=== PATIENT | female | born 1990 | race Caucasian/White ===

== ENCOUNTER 2016-04-20 22:43 | Emergency (ER) | payer SELFPAY ==
[2016-04-20 22:52] VITALS: BP 134/81
[2016-04-20] MEDS ORDERED: Ketorolac 60 MG/2 ML SDV IM ONE (23:28)
--- NOTE | 2016-04-21 00:32 | EDM.PDOC ---
ED HPI LOWER BACK PAIN/INJURY - General Chief Complaint: Back Pain or Injury Stated Complaint: LOWER BACK PAIN Time Seen by Provider: 04/21/16 00:16 Source: Reports: Patient History Limitations: Reports: No limitations - History of Present Illness INITIAL COMMENTS - FREE TEXT/NARRATIVE: History of present illness: [25-year-old female presenting with left low back pain and chills. She's been using Tylenol at home. The pain became so severe she vomited times one. She denies any dysuria she's had no constipation or diarrhea no cough or cold symptoms. No history of angina as her heavy lifting. She's not had this before. She's been in good health] Review of systems: As per history of present illness and below otherwise all systems reviewed and negative. Past medical history: As per history of present illness and as reviewed below otherwise noncontributory. Surgical history: As per history of present illness and as reviewed below otherwise noncontributory. Social history: No reported history of drug or alcohol abuse. Family history: As per history of present illness and as reviewed below otherwise noncontributory. Physical exam: HEENT: Atraumatic, normocephalic, pupils reactive, negative for conjunctival pallor or scleral icterus, mucous membranes moist, throat clear, neck supple, nontender, trachea midline. Lungs: Clear to auscultation, breath sounds equal bilaterally, chest nontender. Heart: S1S2, regular, negative for clicks, rubs, or JVD. Abdomen: Soft, nondistended, nontender. Negative for masses or hepatosplenomegaly. Negative for costovertebral tenderness. Pelvis: Stable nontender. Genitourinary: Deferred. Rectal: Deferred. Back: On examination of her back her pain localizes to the left SI joint area no rashes are present no erythema or warmth Extremities: Atraumatic, negative for cords or calf pain. Neurovascular unremarkable. Neuro: Awake, alert, oriented. Cranial nerves II through XII unremarkable. Cerebellum unremarkable. Motor and sensory unremarkable throughout. Exam nonfocal. Diagnostics: [] Therapeutics: [She was given IM Toradol with moderate relief] Impression: [Lower back pain in the region of the SI joint] Plan: [Providing her with 12 [place] 5/325. She recalls having some trouble with his joints when she was and seeing a chiropractor so she may try chiropractic treatment. Following up with her primary care providers also of course an option] Definitive disposition and diagnosis as appropriate pending reevaluation and review of above. 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 ED EXAM,LOWER BACK PAIN/INJURY - Physical Exam Exam: See Below Course - Vital Signs Last Recorded V/S: Last Vital Signs Temp 37.6 C 04/20/16 22:50 Pulse 119 H 04/20/16 22:50 Resp BP 134/81 04/20/16 22:50 Pulse Ox 100 04/20/16 22:50 - Orders/Labs/Meds Labs: Laboratory Tests 04/20/16 04/20/16 Range/Units 23:11 23:11 Urine Color Yellow Urine Appearance Clear Urine pH 9.0 H (4.5-8.0) Ur Specific [place] 1.020 (1.008-1.030) Urine Protein Negative (NEGATIVE) mg/dL Urine Glucose (UA) Normal (NEGATIVE) mg/dL Urine Ketones 15 H (NEGATIVE) mg/dL Urine Occult Blood Negative (NEGATIVE) Urine Nitrite Negative (NEGATIVE) Urine Bilirubin Negative (NEGATIVE) Urine Urobilinogen Normal (NORMAL) mg/dL Ur Leukocyte Esterase Negative (NEGATIVE) Urine RBC 0-5 (0-5) Urine WBC 0-5 (0-5) Ur Epithelial Cells Moderate Amorphous Sediment Not seen Urine Bacteria Few Urine Mucus Not seen Urine HCG, Qual Negative Meds: Medications Discontinued Medications Generic Name Dose Route Start Last Admin Trade Name Adam PRN Reason Stop Dose Admin Ketorolac Tromethamine 30 mg 04/20/16 23:28 04/20/16 23:35 Toradol IM 04/20/16 23:29 30 mg ONETIME ONE Administration Departure - Departure Time of Disposition: 00:30 Disposition: Home, Self-Care 01 Condition: good Clinical Impression: Pain of left sacroiliac joint Forms: ED Department Discharge Additional Instructions: Your pain seems to localize to the left sacroiliac joint region. Once again you may consider residential care facility manager to see if they could help you with your pain or follow up with your primary care doctor. If you become more ill or develops high fevers associated with this pain then you should return to the emergency room for another evaluation.
== END 2016-04-21 00:42 | disposition home or self-care (01) ==
LOC: JP.ED 22:43
DX: M53.3 Sacrococcygeal disorders, not elsewhere classified (principal)
CPT/HCPCS: 81001; 81025; 96372; 99284; J1885; 99283

== ENCOUNTER 2016-11-07 23:46 | Emergency (ER) | payer MEDICAID ==
[2016-11-08 00:10] VITALS: BP 139/71
--- NOTE | 2016-11-08 00:29 | EDM.PDOC ---
ED HPI GENERAL MEDICAL PROBLEM - General Chief Complaint: Lower Extremity Injury/Pain Stated Complaint: DROPPED DOOR ON RIGHT FOOT Time Seen by Provider: 11/08/16 00:15 Source of Information: Reports: Patient, Family History Limitations: Reports: No Limitations - History of Present Illness INITIAL COMMENTS - FREE TEXT/NARRATIVE: 26-year-old female injured her right foot 5 hours ago when a heavy trapdoor fell onto her forefoot. No significant swelling but she was unable to sleep tonight because of the significant pain. She is able to bear some weight with limping. No other injury. Onset: Sudden Duration: Hour(s): (5 hours ago) Location: Reports: Lower Extremity, Right Severity: Moderate Associated Symptoms: Reports: No Other Symptoms Right Feet Pain Score (Numeric/FACES): 9 - Related Data Allergies Allergy/AdvReac Type Severity Reaction Status Date / Time No Known Allergies Allergy Verified 11/08/16 00:11 Home Meds: Home Meds Acetaminophen [Tylenol] 650 mg PO ASDIRECTED PRN 04/20/16 [History] Ibuprofen [Motrin] 600 mg PO Q6H PRN 04/20/16 [History] Pnv No.122/Iron/Folic Acid [ Multi Tablet] 1 tab PO DAILY 11/08/16 [ History] Past Medical History - Past Health History Medical/Surgical History: Denies 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: currently has menses now normal Neurological History: Reports: Migraines - Infectious Disease History Infectious Disease History: Reports: Chicken Pox Social & Family History - Tobacco Use Smoking Status *Q: Never Smoker Second Hand Smoke Exposure: No - Caffeine Use Caffeine Use: Reports: Coffee, Tea - Alcohol Use Days Per Week of Alcohol Use: 0 - Recreational Drug Use Recreational Drug Use: No Review of Systems - Review of Systems Review Of Systems: See Below Constitutional: Denies: Fever Respiratory: Denies: Shortness of Breath, Cough Cardiovascular: Denies: Chest Pain GI/Abdominal: Reports: Other (Patient is 18 weeks gestation ). Denies: Abdominal Pain Genitourinary: Reports: No Symptoms Psychiatric: Reports: No Symptoms ED EXAM, GENERAL - Physical Exam Exam: See Below Exam Limited By: No Limitations General Appearance: Alert, No Apparent Distress Respiratory/Chest: No Respiratory Distress Extremities: Other (Exam is otherwise limited to the right lower extremity. There is tenderness to palpation across the distal metatarsals but no crepitus, deformity or significant bruising or swelling) Course - Vital Signs Last Recorded V/S: Last Vital Signs Temp 98.8 F 11/08/16 00:16 Pulse 88 11/08/16 00:16 Resp 16 11/08/16 00:16 BP 139/71 11/08/16 00:16 Pulse Ox 99 11/08/16 00:16 - Orders/Labs/Meds Orders: Active Orders 24 hr Category Date Time Status Foot Comp Min 3V Rt [CR] Stat Exams 11/08/16 00:36 Taken - Re-Assessments/Exams Free Text/Narrative Re-Assessment/Exam: 11/08/16 00:28 Patient was shielded, and a right foot x-ray was obtained. 11/08/16 00:54 Foot x-ray was negative. A 2 inch Sarmad wrap was applied around the foot and the patient was given 6 Vicodin for pain control for the next 12 hours. She is to increase activity as tolerated and recheck in 2-3 days if not improving satisfactorily. Departure - Departure Time of Disposition: 01:03 Disposition: Home, Self-Care 01 Condition: Good Clinical Impression: Contusion of foot, right Qualifiers: Encounter type: initial encounter Qualified Code(s): S90.31XA - Contusion of right foot, initial encounter - Discharge Information Instructions: Foot Contusion, [id number] Referrals: Sylvie Crowell CNM [Primary Care Provider] - Forms: ED Department Discharge Care Plan Goals: Wrap foot for comfort, use stronger pain medications as prescribed for the next 12 hours. Increase activity as tolerated and recheck in 3-4 days if not improving satisfactorily. - My Orders Last 24 Hours: My Active Orders 11/08/16 00:36 Foot Comp Min 3V Rt [CR] Stat - Assessment/Plan Last 24 Hours: My Active Orders 11/08/16 00:36 Foot Comp Min 3V Rt [CR] Stat
--- NOTE | 2016-11-08 08:59 | CR ---
Foot Comp Min 3V Rt HISTORY: Injury. COMPARISON: None FINDINGS: No fracture or dislocation. No bony destructive process.
== END 2016-11-08 01:03 | disposition home or self-care (01) ==
LOC: JP.ED 23:46
DX: S90.31XA Contusion of right foot, initial encounter (principal); W20.8XXA Other cause of strike by thrown, projected or falling object, initial encounter; Z79.899 Other long term (current) drug therapy
CPT/HCPCS: 73630-26-RT; 73630-RT; 99284

== ENCOUNTER 2017-04-04 22:37 | Inpatient (IN) | payer MEDICAID ==
[2017-04-05] MEDS ORDERED: Lactated Ringers 1,000 ML IV ONE (01:10)
[2017-04-05] MEDS ORDERED: Sodium Chloride 0.9% 10 ML Syringe FLUSH PRN (01:56)
[2017-04-05] MEDS ORDERED: Ondansetron 4 MG Tab.DIS PO PRN (01:56)
[2017-04-05] MEDS ORDERED: ePHEDrine/Normal Saline 50 MG/5 ML Syringe ONE (01:59)
--- NOTE | 2017-04-05 02:08 | PCM.LDHP ---
L&D History of Present Illness - General Date of Service: 04/05/17 (labor) Admit Problem/Dx: Patient Status Order with Admit Dx/Problem 04/05/17 01:56 Patient Status [ADT] Routine Admission Diagnosis/Problem Admission Diagnosis/Problem Source of Information: Patient History Limitations: Reports: No Limitations - History of Present Illness Introduction:: This 26 year old who is 38 5/7 weeks gestation presented in labor. Complains of her back hurting. no leakage of fluid, baby moving GBS neg Rubella Immune HIV, neg ABO O pos Timing/Duration: Reports: minutes: (2-3) Location, : Reports: Lower back Quality: Reports: Pressure Severity: Moderate Improves with: Reports: None Worsens with: Reports: None - Related Data Allergies/Adverse Reactions: Allergies Allergy/AdvReac Type Severity Reaction Status Date / Time No Known Allergies Allergy Verified 11/08/16 00:11 Home Medications: Home Meds Acetaminophen [Tylenol] 650 mg PO ASDIRECTED PRN 04/20/16 [History] Pnv No.122/Iron/Folic Acid [ Multi Tablet] 1 tab PO DAILY 11/08/16 [ History] Past Medical History - Past Health History Medical/Surgical History: Denies 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/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 (Approximate): (CHRISTINE 04/14/17) Neurological History: Reports: Migraines - Infectious Disease History Infectious Disease History: Reports: Chicken Pox Social & Family History - Tobacco Use Smoking Status *Q: Former Smoker Years of Tobacco use: 4 Packs/Tins Daily: 0.5 Used Tobacco, but Quit: Yes Month Tobacco Last Used: 2011 Second Hand Smoke Exposure: No - Caffeine Use Caffeine Use: Reports: Coffee Other Caffeine Use: 1 cup daily - Alcohol Use Days Per Week of Alcohol Use: 0 - Recreational Drug Use Recreational Drug Use: No H&P Review of Systems - Review of Systems: Review Of Systems: See Below General: Reports: No Symptoms HEENT: Reports: No Symptoms Pulmonary: Reports: No Symptoms Cardiovascular: Reports: No Symptoms Gastrointestinal: Reports: No Symptoms Genitourinary: Reports: No Symptoms Musculoskeletal: Reports: No Symptoms Skin: Reports: No Symptoms Psychiatric: Reports: No Symptoms Neurological: Reports: No Symptoms Hematologic/Lymphatic: Reports: No Symptoms Immunologic: Reports: No Symptoms L&D Exam - Exam Exam: See Below - Vital Signs Weight: 179 lb - OB Specific Contraction Duration (sec): 60 seconds Contraction Frequency (min): she states they are more frequent and repositioned the toco again Contraction Intensity: Moderate Movement: Active Heart Tones: Present Heart Tones per Min: 140 Heart Rate (FHR) Variability: Moderate (6-25 bmp) Presentation: Vertex Estimated Weight: 7 pounds - Cardona Score Cardona Score Cervix Position: Midposition Cardona Score Consistency: Soft Cardona Score Effacement: 51-70% Cardona Score Dilation: 3-4 cm Cardona Score 's Station: -1 ,0 Cardona Score Total: 9 - Exam General: Alert, Oriented HEENT: PERRLA, Conjunctiva Clear, EACs Clear, EOMI, Hearing Intact, Mucosa Moist & [place], Nares Patent, Normal Nasal Septum Neck: Supple, Trachea Midline Lungs: Clear to Auscultation, Normal Respiratory Effort Cardiovascular: Regular Rate, Regular Rhythm GI/Abdominal Exam: Normal Bowel Sounds, Soft, Non-Tender, No Organomegaly, No Distention, No Abnormal Bruit, No Mass, Pelvis Stable Rectal Exam: Normal Exam, Normal Rectal Tone Genitourinary: Normal external exam, Normal bimanual exam, Normal speculum exam , Cervical dilitation, Enlarged uterus Back Exam: Normal Inspection, Full Range of Motion Extremities: Normal Inspection, Normal Range of Motion, Non-Tender, No Pedal Edema, Normal Capillary Refill Skin: Warm, Dry, Intact Neurological: Cranial Nerves Intact, Reflexes Equal Bilateral Psychiatric: Alert, Normal Affect, Normal Mood - Patient Data Lab Results Last 24 hrs: Laboratory Results - last 24 hr 04/04/17 04/05/17 Range/Units 22:46 01:23 WBC 12.7 H (4.5-11.0) K/uL RBC 3.81 (3.30-5.50) M/uL Hgb 10.9 L (12.0-15.0) g/dL Hct 33.1 L (36.0-48.0) % MCV 87 (80-98) fL MCH 29 (27-31) pg MCHC 33 (32-36) % Plt Count 221 (150-400) K/uL Urine Color Yellow Urine Appearance Clear Urine pH 7.0 (4.5-8.0) Ur Specific [place] 1.015 (1.008-1.030) Urine Protein Negative (NEGATIVE) mg/dL Urine Glucose (UA) Normal (NEGATIVE) mg/dL Urine Ketones Negative (NEGATIVE) mg/dL Urine Occult Blood Negative (NEGATIVE) Urine Nitrite Negative (NEGATIVE) Urine Bilirubin Negative (NEGATIVE) Urine Urobilinogen Normal (NORMAL) mg/dL Ur Leukocyte Esterase Negative (NEGATIVE) Urine RBC 0-5 (0-5) Urine WBC 0-5 (0-5) Ur Epithelial Cells Few Amorphous Sediment Moderate Urine Bacteria Not seen Urine Mucus Not seen Result Diagrams: 04/05/17 01:23 - Problem List (1) SNOMED Code(s): 15641019 ICD Code: Z34.90 - ENCNTR FOR SUPRVSN OF NORMAL , UNSP, UNSP TRIMESTER Status: Acute Current Visit: Yes Qualifiers: Weeks of gestation: 38 weeks Qualified Code(s): Z3A.38 - 38 weeks gestation of (2) Active labor at term SNOMED Code(s): 15367690 ICD Code: [id number] - Status: Acute Current Visit: Yes Problem List Initiated/Reviewed/Updated: Yes Orders Last 24hrs: Active Orders 24 hr Category Date Time Status Patient Status [ADT] Routine ADT 04/05/17 01:56 Ordered Antiembolic Devices [RC] .Routine Care 04/05/17 01:59 Ordered Communication Order [RC] ASDIRECTED Care 04/05/17 01:56 Ordered Heart Tones [RC] PER UNIT ROUTINE Care 04/05/17 01:56 Ordered Notify Provider Vital Signs [RC] PRN Care 04/05/17 01:56 Ordered Notify Provider [RC] PRN Care 04/05/17 01:56 Ordered OB Check [OM.PC] Click to Edit Care 04/04/17 22:45 Ordered Up ad Laura [RC] ASDIRECTED Care 04/05/17 01:56 Ordered VTE/DVT Education [RC] Click to Edit Care 04/05/17 01:59 Ordered Vital Signs [RC] PER UNIT ROUTINE Care 04/05/17 01:56 Ordered Regular Diet [DIET] Diet 04/05/17 Breakfast Ordered Lactated Ringers [Ringers, Lactated] 1,000 ml Med 04/05/17 01:10 Active IV BOLUS Ondansetron [Zofran ODT] Med 04/05/17 01:56 Ordered 4 mg PO Q4H PRN Oxytocin/Normal Saline [Pitocin in NS 20 Units/1,000 ML Med 04/05/17 02:00 Ordered ] 20 unit in 1,000 ml IV ONETIME Sodium Chloride 0.9% [Saline Flush] Med 04/05/17 01:56 Ordered 10 ml FLUSH ASDIRECTED PRN DVT/VTE Prophylaxis Reflex [OM.PC] Routine Oth 04/05/17 01:56 Ordered Saline Lock Insert [OM.PC] Routine Oth 04/05/17 01:56 Ordered Resuscitation Status Routine Resus Stat 04/05/17 01:56 Ordered Medication Orders Lactated Ringer's (Ringers, Lactated) 1,000 mls @ 999 mls/hr IV BOLUS ONE Stop: 04/05/17 02:10 Oxytocin/Sodium Chloride (Pitocin In Ns 20 Units/1,000 Ml) 20 unit in 1,000 mls @ 999 mls/hr IV ONETIME ONE PRN Reason: Protocol Stop: 04/05/17 03:00 Ondansetron HCl (Zofran Odt) 4 mg PO Q4H PRN PRN Reason: Nausea/Vomiting Sodium Chloride (Saline Flush) 10 ml FLUSH ASDIRECTED PRN PRN Reason: Keep Vein Open Assessment/Plan Comment:: 04/05/17 Labor labor at term requires epidural for back labor reactive strip Cat one AROM when able Plan Anticipate vaginal delivery
[2017-04-05] MEDS ORDERED: Lactated Ringers 1,000 ML IV SCH (02:10)
[2017-04-05] MEDS ORDERED: Ropivacaine 100 ML ONE (02:37)
--- NOTE | 2017-04-05 03:17 | ANES ---
DATE OF SERVICE: 04/05/2017 Labor Epidural Note Padmaja is a 39-week OB patient, currently in active labor. I was called at approximately 1:37 this morning for request for labor epidural related to labor pains. I was at the bedside at approximately 1:55. Platelet count, I was told by Gianna Gray was 221. A brief history and physical were done with the patient. Risks and benefits were discussed with the patient and her . She verbalizes her understanding and wishes to proceed with the labor epidural today. She was then sat at the edge of the bed. A Betadine prep x3 to the lumbar region was done. Sterile drape was placed. A 1% lidocaine skin wheal and deep was done. A 17-gauge Tuohy needle was then inserted. Loss of resistance was achieved at approximately 7.5 cm. Catheter was easily threaded in and a Tuohy needle was then removed. Catheter was taped and secured at 14 cm. A 3 mL test dose was then done at this time. Sterile drape was removed. The patient was then laid supine with slight left uterine displacement. I proceeded to give 12 mL of 0.2% ropivacaine over approximately 10 minutes, and then after the bolus, I started 0.2% ropivacaine drip at 12 mL an hour. The patient was resting comfortably and vital signs were stable throughout the procedure and post epidural and post bolus blood pressure remained stable. The patient had no complaints of nausea and stated that she was starting to feel more comfortable with her labor pains. Time-out was done prior to the procedure. Please refer to the nurse's notes for vital signs and times related to the procedure and medication. We will continue to monitor the patient closely. Seng Renteria CRNA /[id number]
[2017-04-05] MEDS ORDERED: Ibuprofen 600 MG Tab PO PRN (06:17)
--- NOTE | 2017-04-05 06:22 | PCM.DEL ---
L & D Note - General Info Date of Service: 04/05/17 (delivery) Mother's Due Date: 03/15/17 - Delivery Note Labor: Spontaneous Delivery Outcome: Livebirth Infant Delivery Method: Spontaneous Vaginal Delivery-Single Infant Delivery Mode: Spontaneous Presentation: Vertex Nuchal Cord: Present, Reduced Anesthesia Type: Epidural Amniotic Fluid Description: Clear Episiotomy Type: None Laceration: None Placenta: Intact, Spontaneous Cord: 3 Vessels Estimated Blood Loss: 50 Resuscitation Needed: No [place]: Stimulated, [place] Used Provider: Sheron Gray Score 1 min: 9 Score 5 min: 9 Second Stage Interventions: Reports: Pushing Effectively, Pushing, Stirrups/Leg Supports Delivery Comments (Free Text/Narrative):: This 26 year old G3 now P3 who is 38 5/7 delivered a viable male infant over an intact perineum via at 0536 in RABIA position. He was placed on mother's abdomen crying, where he was dried and stimulated Apgars 9,9, three vessel cord. Placenta was expressed spontaneously intact. No lacerations of the cervix,vagina ,rectum or perineum were found EBL 50cc Mother and baby to post and nursery in stable condition. First [id number] Second [id number], first push 0533 third [id number] - General Info Date of Service: 04/05/17 Admission Dx/Problem (Free Text): Patient Status Order with Admit Dx/Problem 04/05/17 01:56 Patient Status [ADT] Routine Admission Diagnosis/Problem Admission Diagnosis/Problem Functional Status: Reports: Pain Controlled - Review of Systems General: Reports: No Symptoms HEENT: Reports: No Symptoms Pulmonary: Reports: No Symptoms Cardiovascular: Reports: No Symptoms Gastrointestinal: Reports: No Symptoms Genitourinary: Reports: No Symptoms Musculoskeletal: Reports: No Symptoms Skin: Reports: No Symptoms Neurological: Reports: No Symptoms Psychiatric: Reports: No Symptoms - Patient Data Vitals - Most Recent: Last Vital Signs Temp 97.8 F 04/05/17 02:31 Pulse 76 04/05/17 04:36 Resp 18 04/05/17 04:36 BP 120/75 04/05/17 04:36 Pulse Ox 99 04/05/17 04:36 Weight - Most Recent: 179 lb Lab Results Last 24 Hours: Laboratory Results - last 24 hr 04/04/17 04/05/17 Range/Units 22:46 01:23 WBC 12.7 H (4.5-11.0) K/uL RBC 3.81 (3.30-5.50) M/uL Hgb 10.9 L (12.0-15.0) g/dL Hct 33.1 L (36.0-48.0) % MCV 87 (80-98) fL MCH 29 (27-31) pg MCHC 33 (32-36) % Plt Count 221 (150-400) K/uL Urine Color Yellow Urine Appearance Clear Urine pH 7.0 (4.5-8.0) Ur Specific [place] 1.015 (1.008-1.030) Urine Protein Negative (NEGATIVE) mg/dL Urine Glucose (UA) Normal (NEGATIVE) mg/dL Urine Ketones Negative (NEGATIVE) mg/dL Urine Occult Blood Negative (NEGATIVE) Urine Nitrite Negative (NEGATIVE) Urine Bilirubin Negative (NEGATIVE) Urine Urobilinogen Normal (NORMAL) mg/dL Ur Leukocyte Esterase Negative (NEGATIVE) Urine RBC 0-5 (0-5) Urine WBC 0-5 (0-5) Ur Epithelial Cells Few Amorphous Sediment Moderate Urine Bacteria Not seen Urine Mucus Not seen Med Orders - Current: Current Medications Acetaminophen (Tylenol Bulk Bottle) 325 mg PO Q4H PRN PRN Reason: Pain Acetaminophen (Tylenol) 650 mg PO Q4H PRN PRN Reason: mild pain or fever Acetaminophen/Codeine Phosphate (Tylenol With Codeine No.3 300mg/30mg) 1 tab PO Q4H PRN PRN Reason: Pain (moderate 4-6) Lactated Ringer's (Ringers, Lactated) 1,000 mls @ 125 mls/hr IV ASDIRECTED VIGNESH Ibuprofen (Motrin Bulk Bottle) 600 mg PO Q6H PRN PRN Reason: Pain Ondansetron HCl (Zofran Odt) 4 mg PO Q4H PRN PRN Reason: Nausea/Vomiting Sodium Chloride (Saline Flush) 10 ml FLUSH ASDIRECTED PRN PRN Reason: Keep Vein Open Discontinued Medications Ephedrine Sulfate (Ephedrine In Ns) Confirm Administered Dose 50 mg .ROUTE .STK- MED ONE Stop: 04/05/17 02:00 Lactated Ringer's (Ringers, Lactated) 1,000 mls @ 999 mls/hr IV BOLUS ONE Stop: 04/05/17 02:10 Oxytocin/Sodium Chloride (Pitocin In Ns 20 Units/1,000 Ml) 20 unit in 1,000 mls @ 999 mls/hr IV ONETIME ONE PRN Reason: Protocol Stop: 04/05/17 03:00 Ropivacaine (Naropin 0.2%) Confirm Administered Dose 100 mls @ as directed .ROUTE .STK-MED ONE Stop: 04/05/17 02:38 Oxytocin/Sodium Chloride (Pitocin In Ns 20 Units/1,000 Ml) Confirm Administered Dose 20 unit in 1,000 mls @ as directed .ROUTE .STK-MED ONE Stop: 04/05/17 05:44 - Exam General: Alert, Oriented HEENT: Pupils Equal, Pupils Reactive Neck: Supple Lungs: Clear to Auscultation, Normal Respiratory Effort Cardiovascular: Regular Rate, Regular Rhythm GI/Abdominal Exam: Normal Bowel Sounds, Soft, Non-Tender (Female) Exam: Cervical Dilatation, Enlarged Uterus, Vaginal Bleeding Back Exam: Normal Inspection, Full Range of Motion Extremities: Normal Inspection, Normal Range of Motion, Non-Tender, No Pedal Edema, Normal Capillary Refill Skin: Warm, Dry, Intact Neurological: No New Focal Deficit Psy/Mental Status: Alert, Normal Affect, Normal Mood - Problem List & Annotations (1) SNOMED Code(s): 37557869 Code(s): Z34.90 - ENCNTR FOR SUPRVSN OF NORMAL , UNSP, UNSP TRIMESTER Status: Acute Current Visit: Yes Qualifiers: Weeks of gestation: 38 weeks Qualified Code(s): Z3A.38 - 38 weeks gestation of (2) Active labor at term SNOMED Code(s): 35031272 Code(s): RPB3400 - Status: Acute Current Visit: Yes (3) () SNOMED Code(s): 513651366 Code(s): Z78.9 - OTHER SPECIFIED HEALTH STATUS Status: Acute Current Visit: Yes (4) Vaginal delivery SNOMED Code(s): 796913442 Code(s): O80 - ENCOUNTER FOR FULL-TERM UNCOMPLICATED DELIVERY Status: Acute Current Visit: Yes - Problem List Review Problem List Initiated/Reviewed/Updated: Yes - My Orders Last 24 Hours: My Active Orders 04/04/17 22:45 OB Check [OM.PC] Click to Edit 04/05/17 01:56 Communication Order [RC] ASDIRECTED Notify Provider Vital Signs [RC] PRN Notify Provider [RC] PRN Up ad Laura [RC] ASDIRECTED Vital Signs [RC] PER UNIT ROUTINE Ondansetron [Zofran ODT] 4 mg PO Q4H PRN Sodium Chloride 0.9% [Saline Flush] 10 ml FLUSH ASDIRECTED PRN DVT/VTE Prophylaxis Reflex [OM.PC] Routine Saline Lock Insert [OM.PC] Routine Resuscitation Status Routine 04/05/17 01:59 Antiembolic Devices [RC] .Routine VTE/DVT Education [RC] Click to Edit 04/05/17 02:10 Lactated Ringers [Ringers, Lactated] 1,000 ml IV ASDIRECTED 04/05/17 02:30 Reid Catheter Insertion [Insert Urinary Catheter] [OM.PC] Q24H 04/05/17 03:16 Urinary Catheter Assessment [RC] ASDIRECTED 04/05/17 06:05 Patient Status [ADT] Routine Vital Signs [RC] PFP Acetaminophen [Tylenol Bulk Bottle] 325 mg PO Q4H PRN Acetaminophen [Tylenol] 650 mg PO Q4H PRN Acetaminophen/Codeine [Tylenol with Codeine No.3 300MG/30MG] 1 tab PO Q4H PRN Ibuprofen [Motrin Bulk Bottle] 600 mg PO Q6H PRN Assess Lochia [WOMSER] Per Unit Routine Assess Uterine Involution [WOMSER] Per Unit Routine 04/05/17 06:06 Perineal Care [OM.PC] Per Unit Routine Peripheral IV Discontinue [OM.PC] Routine Sitz Bath [OM.PC] Per Unit Routine 04/05/17 Breakfast Regular Diet [DIET] 04/06/17 05:11 CBC WITH AUTO DIFF [HEME] AM - Assessment Assessment:: 04/05/17 26 yr old 38 5/7 weeks G3 now P3 without complications - Plan Plan:: 04/05/17 Labor labor at term requires epidural for back labor reactive strip Cat one AROM when able Plan Anticipate vaginal delivery 04/05/17 routine cares 24-48 hour stay CBC in am tomorrow
[2017-04-05] MEDS: Acetaminophen 325 MG Tab PO PRN ×2 (08:18→22:10)
[2017-04-05] MEDS ORDERED: Benzocaine 20% Top Spray 56 GM Bottle TOP PRN (08:52)
[2017-04-05] MEDS ORDERED: Lanolin 100% Cream 40 GM Tube TOP PRN (08:52)
[2017-04-05] MEDS: Acetaminophen/Codeine 300-30 MG Tab PO PRN ×2 (12:52→18:17)
[2017-04-06] MEDS: Acetaminophen 325 MG Tab PO PRN ×2 (02:55→13:34)
--- NOTE | 2017-04-06 09:15 | PCM.PNPP ---
- General Info Date of Service: 04/06/17 (PPD 1 D/C) Admission Dx/Problem (Free Text): Patient Status Order with Admit Dx/Problem 04/05/17 01:56 Patient Status [ADT] Routine Admission Diagnosis/Problem Admission Diagnosis/Problem Functional Status: Reports: Pain Controlled - Review of Systems General: Reports: No Symptoms HEENT: Reports: No Symptoms Pulmonary: Reports: No Symptoms Cardiovascular: Reports: No Symptoms Gastrointestinal: Reports: No Symptoms Genitourinary: Reports: No Symptoms Musculoskeletal: Reports: No Symptoms Skin: Reports: No Symptoms Neurological: Reports: No Symptoms Psychiatric: Reports: No Symptoms - General Info Date of Service: 04/06/17 - Patient Data Vital Signs - Most Recent: Last Vital Signs Temp 96.8 F 04/06/17 07:49 Pulse 85 04/06/17 07:49 Resp 16 04/06/17 07:49 BP 135/87 04/06/17 07:49 Pulse Ox 98 04/06/17 07:49 Weight - Most Recent: 178 lb 15.999 oz I&O - Last 24 Hours: Intake & Output 04/05/17 04/06/17 04/06/17 22:59 06:59 14:59 Intake Total 1300 Balance 1300 Lab Results - Last 24 Hours: Laboratory Results - last 24 hr 04/06/17 Range/Units 05:00 WBC 11.5 H (4.5-11.0) K/uL RBC 3.67 (3.30-5.50) M/uL Hgb 10.8 L (12.0-15.0) g/dL Hct 32.0 L (36.0-48.0) % MCV 87 (80-98) fL MCH 29 (27-31) pg MCHC 34 (32-36) % Plt Count 193 (150-400) K/uL Neut % (Auto) 67 H (36-66) % Lymph % (Auto) 24 (24-44) % [place] % (Auto) 7 H (2-6) % Eos % (Auto) 1 L (2-4) % Baso % (Auto) 0 (0-1) % Med Orders - Current: Current Medications Acetaminophen (Tylenol) 325 mg PO Q4H PRN PRN Reason: Pain Last Admin: 04/05/17 08:18 Dose: 325 mg Acetaminophen (Tylenol) 650 mg PO Q4H PRN PRN Reason: mild pain or fever Last Admin: 04/06/17 02:55 Dose: 650 mg Acetaminophen/Codeine Phosphate (Tylenol With Codeine No.3 300mg/30mg) 1 tab PO Q4H PRN PRN Reason: Pain (moderate 4-6) Last Admin: 04/05/17 18:17 Dose: 1 tab Benzocaine (Cyhx-E-Qoknkod 20% [place]) 1 gm TOP ASDIRECTED PRN PRN Reason: Pain (moderate 4-6) Last Admin: 04/05/17 09:35 Dose: 1 applic Emollient Ointment (Lansinoh Hpa) 40 gm TOP ASDIRECTED PRN PRN Reason: sore nipples Last Admin: 04/05/17 09:36 Dose: 1 applic Lactated Ringer's (Ringers, Lactated) 1,000 mls @ 125 mls/hr IV ASDIRECTED VIGNESH Last Admin: 04/05/17 02:10 Dose: 125 mls/hr Ibuprofen (Motrin) 600 mg PO Q6H PRN PRN Reason: Pain Ondansetron HCl (Zofran Odt) 4 mg PO Q4H PRN PRN Reason: Nausea/Vomiting Sodium Chloride (Saline Flush) 10 ml FLUSH ASDIRECTED PRN PRN Reason: Keep Vein Open Discontinued Medications Ephedrine Sulfate (Ephedrine In Ns) Confirm Administered Dose 50 mg .ROUTE .STK- MED ONE Stop: 04/05/17 02:00 Last Admin: 04/05/17 07:42 Dose: Not Given Lactated Ringer's (Ringers, Lactated) 1,000 mls @ 999 mls/hr IV BOLUS ONE Stop: 04/05/17 02:10 Last Admin: 04/05/17 01:10 Dose: 999 mls/hr Oxytocin/Sodium Chloride (Pitocin In Ns 20 Units/1,000 Ml) 20 unit in 1,000 mls @ 999 mls/hr IV ONETIME ONE PRN Reason: Protocol Stop: 04/05/17 03:00 Last Admin: 04/05/17 05:40 Dose: 999 ml/hr, 999 mls/hr Ropivacaine (Naropin 0.2%) Confirm Administered Dose 100 mls @ as directed .ROUTE .STK-MED ONE Stop: 04/05/17 02:38 Oxytocin/Sodium Chloride (Pitocin In Ns 20 Units/1,000 Ml) Confirm Administered Dose 20 unit in 1,000 mls @ as directed .ROUTE .K-MED ONE Stop: 04/05/17 05:44 Last Admin: 04/05/17 12:52 Dose: Not Given - Infant Interaction Infant Disposition, : [place] in Room with Family Interaction: Holding Infant Feeding: Breastfed ; Nursed Well Support Person: - Recovery Exam Fundal Tone: Firm Fundal Level: 1 Fingerbreadths Below Umbilicus Fundal Placement: Midline Lochia Amount: Moderate Lochia Color: [place]/Red Perineum Description: Intact, Minimal Bruising/Swelling Episiotomy/Laceration: None Bladder Status: Voiding Urinary Elimination: Voided - Exam General: Alert, Oriented HEENT: Pupils Equal Neck: Supple Lungs: Clear to Auscultation, Normal Respiratory Effort Cardiovascular: Regular Rate, Regular Rhythm GI/Abdominal Exam: Normal Bowel Sounds, Soft, Non-Tender, No Organomegaly, No Distention, No Abnormal Bruit, No Mass, Pelvis Stable Extremities: Normal Inspection, Normal Range of Motion, Non-Tender, No Pedal Edema, Normal Capillary Refill Skin: Warm, Dry, Intact Wound/Incisions: Healing Well Neurological: No New Focal Deficit Psy/Mental Status: Alert, Normal Affect, Normal Mood - Problem List & Annotations (1) SNOMED Code(s): 37893954 Code(s): Z34.90 - ENCNTR FOR SUPRVSN OF NORMAL , UNSP, UNSP TRIMESTER Status: Acute Current Visit: Yes Qualifiers: Weeks of gestation: 38 weeks Qualified Code(s): Z3A.38 - 38 weeks gestation of (2) Active labor at term SNOMED Code(s): 00929331 Code(s): EWJ6018 - Status: Acute Current Visit: Yes (3) (infant) SNOMED Code(s): 243546736 Code(s): Z78.9 - OTHER SPECIFIED HEALTH STATUS Status: Acute Current Visit: Yes (4) Vaginal delivery SNOMED Code(s): 980637604 Code(s): O80 - ENCOUNTER FOR FULL-TERM UNCOMPLICATED DELIVERY Status: Acute Current Visit: Yes - Problem List Review Problem List Initiated/Reviewed/Updated: Yes - My Orders Last 24 Hours: My Active Orders 04/05/17 08:52 Benzocaine [Yidz-S-Nrqexrj 20% [place]] 1 gm TOP ASDIRECTED PRN Lanolin [Lansinoh HPA] 40 gm TOP ASDIRECTED PRN - Assessment Assessment:: 04/05/17 26 yr old 38 5/7 weeks G3 now P3 without complications 04/06/17 Feeling well Cramping less going well, some nipple tenderness Flow light HGB 10.8 Mood happy Wants to go home - Plan Plan:: 04/05/17 Labor labor at term requires epidural for back labor reactive strip Cat one AROM when able Plan Anticipate vaginal delivery 04/05/17 routine cares 24-48 hour stay CBC in am tomorrow 04/06/17 Home today see me in 6-8 weeks
[2017-04-06 14:24] VITALS: BP 129/79
== END 2017-04-06 17:00 | disposition home or self-care (01) | DRG 775 ==
LOC: JP.OBCHECK 22:37 → JP.OB 04-05 01:00 → OBSVTOIN 04-05 05:36 → JP.MS 04-05 05:43
PROVIDERS: ADMIT Nurse Practitioner Family; ATTEND Nurse Practitioner Family
PROC: 10E0XZZ Delivery of Products of Conception, External Approach (ICD-10-PCS; principal; 2017-04-05)
DX: O69.1XX0 Labor and delivery complicated by cord around neck, with compression, not applicable or unspecified (principal); Z3A.38 38 weeks gestation of pregnancy; Z37.0 Single live birth
CPT/HCPCS: 36415; 51702; 59409; 80305; 81001; 85025; 85027; 99211; A9270-GY; J2590; J2795; J7120

== ENCOUNTER 2018-08-19 08:58 | Emergency (ER) | payer MEDICAID ==
[2018-08-19 09:18] VITALS: BP 123/73; PULSE 83
[2018-08-19] MEDS ORDERED: cefTRIAXone 1 GM, Lidocaine 1% 2.1 ML IM ONE ×2 (09:45)
[2018-08-19] MEDS ORDERED: Ketorolac 60 MG/2 ML SDV IM ONE (09:45)
--- NOTE | 2018-08-19 09:50 | EDM.PDOC ---
ED HPI GENERAL MEDICAL PROBLEM - General Chief Complaint: Respiratory Problem Stated Complaint: SAW IN CLINIC FOR PHENMONIA ON 08/17/18 Time Seen by Provider: 08/19/18 09:39 Source of Information: Reports: Patient, Old Records, RN Notes Reviewed History Limitations: Reports: No Limitations - History of Present Illness INITIAL COMMENTS - FREE TEXT/NARRATIVE: 28-year-old female presents to the emergency department today complaint of cough and rib pain from coughing, she was recently diagnosed with right middle lobe pneumonia 2 days ago in clinic and started on doxycycline for antibiotic as well as inhaler. Chest x-ray confirms right middle lobe pneumonia. She states her fever has broken has not returned she continues to have a cough which causes discomfort with rib pain no shortness of breath, has been having nausea and vomiting as well Left Middle Abdomen Pain Score (Numeric/FACES): 8 - Related Data Allergies Allergy/AdvReac Type Severity Reaction Status Date / Time No Known Allergies Allergy Verified 08/19/18 09:17 Home Meds: Home Meds Acetaminophen [Tylenol] 650 mg PO ASDIRECTED PRN 04/20/16 [History] Acyclovir [Zovirax] 2 tab PO ASDIRECTED PRN 08/19/18 [History] Doxycycline [Doxycycline Hyclate] 100 mg PO ASDIRECTED 08/19/18 [History] Loratadine 10 mg PO DAILY 08/19/18 [History] Meclizine [Antivert] 25 mg PO TID PRN 08/19/18 [History] Norgestrel-Ethinyl Estradiol [Cryselle-28 Tablet] 1 each PO DAILY 08/19/18 [ History] Ondansetron HCl [Zofran] 4 mg PO ASDIRECTED PRN 08/19/18 [History] SUMAtriptan [Imitrex] 50 mg PO ASDIRECTED PRN 08/19/18 [History] Past Medical History HEENT History: Reports: Impaired Vision 4 H [employer] History: Reports: Neurological History: Reports: Migraines - Infectious Disease History Infectious Disease History: Reports: Chicken Pox - Past Surgical History Head Surgeries/Procedures: Reports: None HEENT Surgical History: Reports: None Neurological Surgical History: Reports: None Dermatological Surgical History: Reports: None Social & Family History - Family History Family Medical History: Noncontributory - Tobacco Use Smoking Status *Q: Former Smoker Used Tobacco, but Quit: No Month/Year Tobacco Last Used: 2013 Second Hand Smoke Exposure: No - Caffeine Use Caffeine Use: Reports: Coffee, Tea Other Caffeine Use: 1 cup daily - Recreational Drug Use Recreational Drug Use: No ED ROS GENERAL - Review of Systems Review Of Systems: See Below Constitutional: Reports: No Symptoms. Denies: Fever HEENT: Reports: No Symptoms Respiratory: Reports: Cough, Sputum Cardiovascular: Reports: Chest Pain GI/Abdominal: Reports: No Symptoms : Reports: No Symptoms ED EXAM, GENERAL - Physical Exam Exam: See Below Exam Limited By: No Limitations General Appearance: Alert, WD/WN, No Apparent Distress Respiratory/Chest: No Respiratory Distress, Lungs Clear (On the left), Rhonchi ( Right middle to lower lung sanchez) Cardiovascular: Regular Rate, Rhythm, No Murmur Course - Vital Signs Last Recorded V/S: Last Vital Signs Temp 96.4 F 08/19/18 09:19 Pulse 83 08/19/18 09:19 Resp 16 08/19/18 09:19 BP 123/73 08/19/18 09:19 Pulse Ox 97 08/19/18 09:19 - Orders/Labs/Meds Meds: Medications Discontinued Medications Generic Name Dose Route Start Last Admin Trade Name Freq PRN Reason Stop Dose Admin Ceftriaxone Sodium 1 gm/ 0 gm 08/19/18 09:45 Lidocaine HCl 2.1 ml IM 08/19/18 09:46 ONETIME ONE Ketorolac Tromethamine 60 mg 08/19/18 09:45 Toradol IM 08/19/18 09:46 ONETIME ONE Departure - Departure Time of Disposition: 09:49 Disposition: Home, Self-Care 01 Condition: Fair Clinical Impression: Right middle lobe pneumonia Qualifiers: Pneumonia type: due to unspecified organism Qualified Code(s): J18.1 - Lobar pneumonia, unspecified organism - Discharge Information Referrals: PCP,None [Primary Care Provider] - Additional Instructions: Continue taking doxycycline already prescribed, continue to use the Tylenol as needed for pain control, try the Robitussin with codeine to help suppress the cough this may make you sleepy. Continue to use her Zofran as needed for nausea and vomiting symptoms, Please followup with your primary care provider in 5-7 days if not better, please call return to the emergency department with worsening of symptoms. - Assessment/Plan Plan: Assessment Acuity = acute Site and laterality = right middle lobe pneumonia Etiology = probable bacterial cause Manifestations = cough and chest wall pain Location of injury = Home Lab values = none Plan Elected to treat empirically Rocephin 1 g 1, 60 mg Toradol IM prescription written for Robitussin before meals 10 mL by mouth 3 times a day when necessary total 120 mL follow-up with primary care in 5-7 days if no improvement This note was dictated using R17 voice recognition software please call with any questions on syntax or grammar.
== END 2018-08-19 10:01 | disposition home or self-care (01) ==
LOC: JP.ED 08:58
DX: J18.1 Lobar pneumonia, unspecified organism (principal); Z87.891 Personal history of nicotine dependence
CPT/HCPCS: 96372; 99283; J0696; J1885; J2001

== ENCOUNTER 2018-08-22 22:57 | Observation (INO) | payer MEDICAID ==
[2018-08-22] MEDS ORDERED: Ondansetron 4 MG/2 ML SDV IVPUSH ONE (23:36)
[2018-08-22] MEDS ORDERED: Sodium Chloride 0.9% 1,000 ML IV SCH (23:45)
[2018-08-23] MEDS ORDERED: Iopamidol 612 MG/ML 100 ML Bottle IV STA (00:03)
[2018-08-23] MEDS ORDERED: Sodium Chloride 0.9% 75 ML IV STA (00:03)
--- NOTE | 2018-08-23 00:16 | EDM.PDOC ---
ED HPI GENERAL MEDICAL PROBLEM - General Chief Complaint: General Stated Complaint: FINGERS AND FEET ARE NUMB Time Seen by Provider: 08/23/18 00:14 Source of Information: Reports: Patient History Limitations: Reports: No Limitations - History of Present Illness INITIAL COMMENTS - FREE TEXT/NARRATIVE: pt arrived stating that she was not able to quit vomiting. She has a known pneumonia . She took doxycyline and it did not improve. She was given levoquin today. She took one dose and she started vomiting violently. She then developed tingling in her feet and her hands. Onset: Today, Sudden Duration: Hour(s): Location: Reports: Chest, Abdomen Associated Symptoms: Reports: Cough, Nausea/Vomiting, Weakness Treatments ALTERATIONS SUPERVISOR: Reports: Other (see below) Other Treatments ALTERATIONS SUPERVISOR: antibiotics right chest wall Pain Score (Numeric/FACES): 8 Headache Pain Score (Numeric/FACES): 8 - Related Data Allergies Allergy/AdvReac Type Severity Reaction Status Date / Time levofloxacin Allergy Vomiting Verified 08/24/18 09:41 Home Meds: Home Meds Acetaminophen [Tylenol] 650 mg PO ASDIRECTED PRN 04/20/16 [History] Acyclovir [Zovirax] 2 tab PO ASDIRECTED PRN 08/19/18 [History] Loratadine 10 mg PO DAILY PRN 08/19/18 [History] Meclizine [Antivert] 25 mg PO TID PRN 08/19/18 [History] Norgestrel-Ethinyl Estradiol [Cryselle-28 Tablet] 1 each PO DAILY 08/19/18 [ History] Ondansetron HCl [Zofran] 4 mg PO ASDIRECTED PRN 08/19/18 [History] SUMAtriptan [Imitrex] 50 mg PO ASDIRECTED PRN 08/19/18 [History] Levofloxacin [Levaquin] 750 mg PO DAILY 08/22/18 [History] Azithromycin 500 mg PO DAILY #3 tablet 08/24/18 [Rx] Cefdinir [Omnicef] 300 mg PO BID #7 cap 08/24/18 [Rx] Past Medical History HEENT History: Reports: Impaired Vision Respiratory History: Reports: Other (See Below) Other Respiratory History: pneumonia [employer]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: Neurological History: Reports: Migraines - Infectious Disease History Infectious Disease History: Reports: Chicken Pox - Past Surgical History Head Surgeries/Procedures: Reports: None HEENT Surgical History: Reports: None Neurological Surgical History: Reports: None Dermatological Surgical History: Reports: None Social & Family History - Family History Family Medical History: Noncontributory - Tobacco Use Smoking Status *Q: Never Smoker - Caffeine Use Caffeine Use: Reports: Coffee, Tea Other Caffeine Use: 1 cup daily - Recreational Drug Use Recreational Drug Use: No ED ROS GENERAL - Review of Systems Review Of Systems: See Below Constitutional: Reports: Chills, Weakness, Other (pt had profound vomiting. ) HEENT: Reports: No Symptoms Respiratory: Reports: No Symptoms Cardiovascular: Reports: No Symptoms Endocrine: Reports: No Symptoms GI/Abdominal: Reports: Nausea, Vomiting, Other (pt had taken one of her levoquin and shortly after started vomiting markedly) ED EXAM, GENERAL - Physical Exam Exam: See Below Free Text/Narrative:: pt arrived vomiting markedly and had been all evening. This started shortly after she took 1 of her levoquin that she was giventoday. This was her first dose. Exam Limited By: No Limitations General Appearance: Alert, Anxious, Moderate Distress Ears: Normal TMs Nose: Normal Inspection Throat/Mouth: Normal Inspection Head: Atraumatic Neck: Normal Inspection Respiratory/Chest: Decreased Breath Sounds GI/Abdominal: Soft, Non-Tender (Female) Exam: Deferred Rectal (Female) Exam: Deferred Back Exam: Normal Inspection Extremities: Normal Inspection Neurological: Alert, Oriented Psychiatric: Anxious Course - Vital Signs Last Recorded V/S: Last Vital Signs Temp 35.7 C 08/24/18 07:00 Pulse 71 08/24/18 07:00 Resp 18 08/24/18 07:00 BP 105/65 08/24/18 07:00 Pulse Ox 98 08/24/18 07:00 - Orders/Labs/Meds Labs: Laboratory Tests 08/22/18 08/22/18 08/23/18 Range/Units 23:38 23:38 00:15 WBC 10.4 (4.5-11.0) K/uL RBC 4.37 (3.30-5.50) M/uL Hgb 12.5 (12.0-15.0) g/dL Hct 37.8 (36.0-48.0) % MCV 87 (80-98) fL MCH 29 (27-31) pg MCHC 33 (32-36) % Plt Count 418 H (150-400) K/uL Neut % (Auto) 72 H (36-66) % Lymph % (Auto) 22 L (24-44) % Burnett % (Auto) 5 (2-6) % Eos % (Auto) 0 L (2-4) % Baso % (Auto) 1 (0-1) % Sodium 136 L (140-148) mmol/L Potassium 3.8 (3.6-5.2) mmol/L Chloride 99 L (100-108) mmol/L Carbon Dioxide 22 (21-32) mmol/L Anion Gap 18.8 H (5.0-14.0) mmol/L BUN 13 (7-18) mg/dL Creatinine 0.9 (0.6-1.0) mg/dL Est Cr Clr Drug Dosing 86.34 mL/min Estimated GFR (MDRD) > 60 (>60) Glucose 125 H (74-106) mg/dL Calcium 9.2 (8.5-10.1) mg/dL Total Bilirubin 0.6 (0.2-1.0) mg/dL AST 34 (15-37) U/L ALT 69 (12-78) U/L Alkaline Phosphatase 44 L (46-116) U/L C-Reactive Protein 1.21 H (0.0-0.3) mg/dL Total Protein 7.9 (6.4-8.2) g/dL Albumin 3.6 (3.4-5.0) g/dL Globulin 4.3 H (2.3-3.5) g/dL Albumin/Globulin Ratio 0.8 L (1.2-2.2) Urine Color Yellow Urine Appearance Cloudy Urine pH 8.0 (4.5-8.0) Ur Specific Ashley 1.010 (1.008-1.030) Urine Protein Trace (NEGATIVE) mg/dL Urine Glucose (UA) Normal (NEGATIVE) mg/dL Urine Ketones 150 H (NEGATIVE) mg/dL Urine Occult Blood Large (NEGATIVE) Urine Nitrite Negative (NEGATIVE) Urine Bilirubin Negative (NEGATIVE) Urine Urobilinogen Normal (NORMAL) mg/dL Ur Leukocyte Esterase Negative (NEGATIVE) Urine RBC 0-5 (0-5) Urine WBC 0-5 (0-5) Ur Epithelial Cells Moderate Amorphous Sediment Not seen Urine Bacteria Moderate Urine Mucus Moderate Meds: Medications Discontinued Medications Generic Name Dose Route Start Last Admin Trade Name Adam PRN Reason Stop Dose Admin Acetaminophen 650 mg 08/23/18 02:13 Tylenol PO Q4H PRN Pain (Mild 1-3)/fever Azithromycin 500 mg 08/23/18 09:00 08/24/18 08:11 Zithromax PO 500 mg DAILY VIGNESH Administration Cefdinir 300 mg 08/23/18 21:00 08/24/18 08:11 Omnicef PO 300 mg BID VIGNESH Administration Sodium Chloride 1,000 mls @ 999 mls/hr 08/22/18 23:45 08/22/18 23:50 Normal Saline IV 999 mls/hr ASDIRECTED VIGNESH Administration Sodium Chloride 75 mls @ 3 mls/sec 08/23/18 00:03 08/23/18 00:12 Normal Saline IV 08/23/18 00:04 3 mls/sec ASDIRECTED STA Administration Ceftriaxone Sodium 1 gm/ 50 mls @ 100 mls/hr 08/23/18 00:45 08/23/18 00:55 Sodium Chloride IV 08/23/18 01:14 100 mls/hr ONETIME ONE Administration Sodium Chloride 1,000 mls @ 999 mls/hr 08/23/18 01:45 08/23/18 01:51 Normal Saline IV 999 mls/hr ASDIRECTED VIGNESH Administration Sodium Chloride 1,000 mls @ 125 mls/hr 08/23/18 02:15 08/24/18 02:38 Normal Saline IV 125 mls/hr ASDIRECTED VIGNESH Administration Iopamidol 100 ml 08/23/18 00:03 08/23/18 00:12 Isovue-300 (61%) IV 08/23/18 00:04 100 ml . DIRECTED STA Administration Lorazepam 0.5 mg 08/23/18 01:31 08/23/18 02:39 Ativan IVPUSH 08/23/18 01:32 Not Given ONETIME ONE Norgestrel-Ethinyl 1 each 08/23/18 09:00 08/24/18 08:09 Estradiol [Cryselle- PO Not Given 28 Tab) (Ptom) DAILY VIGNESH Ondansetron HCl 4 mg 08/22/18 23:36 08/22/18 23:49 Zofran IVPUSH 08/22/18 23:37 4 mg ONETIME ONE Administration Ondansetron HCl 4 mg 08/23/18 00:31 08/23/18 00:54 Zofran IVPUSH 08/23/18 00:32 4 mg ONETIME ONE Administration Ondansetron HCl 4 mg 08/23/18 02:13 08/23/18 07:48 Zofran IV 4 mg Q4H PRN Administration Nausea/Vomiting Sumatriptan Succinate 50 mg 08/23/18 02:15 08/24/18 08:08 Imitrex PO 50 mg ASDIRECTED PRN Administration Headache - Re-Assessments/Exams Free Text/Narrative Re-Assessment/Exam: 08/25/18 07:34 pt was found to have a normal wbc. She has decreased air exchange in her rt lung. A cat scan of the chest with contrast was obtained which showed involvement of most of the rt lung. She continued to be very nauseated and is feeling quite weak. Departure - Departure Time of Disposition: 01:22 Disposition: Admitted As Inpatient 65 Condition: Fair Clinical Impression: Dehydration Pneumonia involving right lung Qualifiers: Pneumonia type: due to unspecified organism Lung location: unspecified part of lung Qualified Code(s): J18.9 - Pneumonia, unspecified organism - Discharge Information
[2018-08-23] MEDS ORDERED: Ondansetron 4 MG/2 ML SDV IVPUSH ONE (00:31)
--- NOTE | 2018-08-23 00:41 | CRLCT ---
INDICATION: Pneumonia, not clearing TECHNIQUE: CT chest was acquired with 100 cc Isovue-300 intravenous contrast. COMPARISON: None. FINDINGS: Lungs and pleural: No pleural effusion or pneumothorax. Faint centrilobular ground-glass opacities within the anterior segment of the right upper lobe with more dense airspace consolidation within the right middle lobe. Faint centrilobular ground-glass within the right lower lobe. Mediastinum: The thyroid gland is unremarkable. Thoracic aorta is normal in caliber. No pericardial effusion. No enlarged mediastinal lymph node. Chest wall: No masses. Upper abdomen: Normal. Bones: Unremarkable for age. IMPRESSION: Airspace consolidation within the right middle lobe as well as some faint ground-glass opacities in the right upper and right lower lobes consistent with bronchopneumonia. Follow-up radiographs recommended in 8 weeks to document resolution. Please note that all CT scans at this facility use dose modulation, iterative reconstruction, and/or weight-based dosing when appropriate to reduce radiation dose to as low as reasonably achievable. Dictated by Robert Julien MD @ Aug 23 2018 12:36AM Signed by Dr. Robert Julien @ Aug 23 2018 12:40AM
[2018-08-23] MEDS ORDERED: cefTRIAXone 1 GM in Sodium Chloride 0.9% 50 ML IV ONE (00:45)
[2018-08-23] MEDS ORDERED: LORazepam 2 MG/ML SDV IVPUSH ONE (01:31)
[2018-08-23] MEDS ORDERED: Sodium Chloride 0.9% 1,000 ML IV SCH (01:45)
[2018-08-23] MEDS ORDERED: Ondansetron 4 MG/2 ML SDV IV PRN (02:13)
[2018-08-23] MEDS ORDERED: Acetaminophen 325 MG Tab PO PRN (02:13)
[2018-08-23] MEDS ORDERED: SUMAtriptan 50 MG Tab PO PRN (02:15)
[2018-08-23] MEDS: Sodium Chloride 0.9% 1,000 ML IV SCH ×2 (03:01→19:44)
--- NOTE | 2018-08-23 03:36 | HP ---
CHIEF COMPLAINT: Cough. HISTORY OF PRESENT ILLNESS: A 28-year-old who has had a nonproductive cough. She had a fever last week. She was seen in the clinic and was given doxycycline, but really things have not improved at all. Was seen in the clinic today and chest x-ray did show continued pneumonia. Was put on Levaquin, took a dose, about an hour and 15 minutes later developed severe nausea and also had tingling of her feet and hands. Came into the emergency room for further evaluation, was evaluated by emergency room physician, and because of her reaction and not responding to doxycycline, I was asked to admit the patient for further evaluation and treatment. The patient has been given IV Rocephin in the emergency room. PAST MEDICAL HISTORY: She has no significant medical problems other than she has had migraine headaches in the past, but otherwise no significant medical problems. MEDICATIONS: 1. Acetaminophen p.r.n. 2. Acyclovir. 3. Levofloxacin 750 mg a day. 4. Loratadine 10 mg daily. 5. Meclizine 25 mg t.i.d. p.r.n. 6. control daily. ALLERGIES: NO KNOWN DRUG ALLERGIES. SOCIAL HISTORY: Nonsmoker. She is an immigrant. FAMILY HISTORY: There are no lung problems that run in the family. REVIEW OF SYSTEMS: Denies headaches. She had a fever last week. Denies any chest pain, but has had shortness of breath with cough that has for the most part been nonproductive. She has had the nausea now, but otherwise none. No bowel problems. No bladder problems. No rashes. OBJECTIVE: VITAL SIGNS: Weight 77 kg. Temperature 36.3, pulse 104, blood pressure 142/83, O2 saturation 99% on room air, respiratory rate 20. PHARYNX: Clear. NECK: Supple. No adenopathy or thyromegaly. LUNGS: Decreased in the bases. HEART: Regular without murmurs. ABDOMEN: Soft, nontender. No mass or organomegaly palpated. EXTREMITIES: No edema. SKIN: Negative. NEURO: Cranial nerves 2 through 12 grossly intact. Alert and oriented x3. Mental status is normal. IMAGING: Chest x-ray does show pneumonia in both lungs. CAT scan showed right middle lobe airspace consolidation, also in the right upper and right lower lobes. LABORATORY DATA: White count 10.4, hemoglobin 12.5, platelets 418,000. Sodium 136, potassium 3.8, chloride 99, BUN was 13, creatinine 0.9, glucose 125. Liver functions were normal. C-reactive protein 1.21. Urinalysis was unremarkable. ASSESSMENT: 1. Pneumonia: We will admit her under observation. The patient has been started on IV Rocephin, which we will continue. 2. Nausea, thought to be secondary to side effect of Levaquin. The patient received Zofran, and also Ativan was ordered, but I do not believe that the Ativan has been given yet, but we will see if she needs it. It sounds like her nausea is better. We will transfer her care to the Hospitalist Service in the morning. Chicho Morris MD /[id number]
[2018-08-23] MEDS: Azithromycin 250 MG Tab PO SCH (09:19)
[2018-08-23] MEDS: NORGESTREL ETHINYL ESTRADIOL PO SCH (10:51)
[2018-08-23] MEDS: Cefdinir 300 MG Cap PO SCH (20:09)
[2018-08-24] MEDS: Sodium Chloride 0.9% 1,000 ML IV SCH (02:38)
[2018-08-24 08:03] VITALS: BP 105/65; PULSE 71
[2018-08-24] MEDS: NORGESTREL ETHINYL ESTRADIOL PO SCH (08:09)
[2018-08-24] MEDS: Azithromycin 250 MG Tab PO SCH (08:11)
[2018-08-24] MEDS: Cefdinir 300 MG Cap PO SCH (08:11)
--- NOTE | 2018-08-24 09:13 | PCM.DCSUM1 ---
Discharge Summary - Hospital Course Brief History: Healthy 28-year-old female who presented with persistent cough, nausea and concerns that she was reacting to her levofloxacin. She was admitted for management of persistent right lung pneumonia. Diagnosis: Stroke: No - Discharge Data Discharge Date: 08/24/18 Discharge Disposition: Home, Self-Care 01 Condition: Good - Discharge Diagnosis/Problem(s) (1) Pneumonia involving right lung SNOMED Code(s): 521437102 ICD Code: J18.9 - PNEUMONIA, UNSPECIFIED ORGANISM Status: Acute Current Visit: Yes Qualifiers: Pneumonia type: due to unspecified organism Lung location: unspecified part of lung Qualified Code(s): J18.9 - Pneumonia, unspecified organism - Patient Summary/Data Hospital Course: Padmaja presented to the emergency room with nausea, cough and a variety of symptoms that made her worry she was reacting to her levofloxacin which had been prescribed for persistent pneumonia. Workup in the emergency room revealed normal laboratory studies. A CT scan of the chest was obtained and did show some persistent but not impressive infiltrates in the right upper right middle and right lower lobes. She was admitted to the hospital for management of the symptoms that were thought to be a reaction to her levofloxacin as well as initiation of different antibiotic therapy. She was not hypoxic or febrile. She was started initially on ceftriaxone and azithromycin was ordered in the morning after admission. Over the course of her observation admission she has done very well. She is eating regular diet without any nausea and has not vomited. She has not had any fevers. She has not been hypoxic. Symptomatically she feels well other than a cough. She has tolerated these antibiotics quite well. She is stable and safe for discharge to home at this time. She will need additional antibiotics as outlined in the medication section. She has follow-up scheduled in 5 days. - Patient Instructions Diet: Regular Diet as Tolerated Activity: As Tolerated Showering/Bathing: May Shower Notify Provider of: Fever, Increased Pain Other/Special Instructions: 1. You were in the hospital for management of right- sided pneumonia. Your condition is improving with current antibiotic therapy. You will need additional antibiotic therapy as outlined below. Your cough may stick around for several days or possibly even a week or more as you are healing up from this. You could consider [id number] cough suppressant such as Robitussin to help manage these symptoms. It is important to listen to your body and rest if you're feeling tired or short of breath. --Azithromycin 500 mg tablets, take 1 tablet daily for 3 days. Your next dose is due on Monday morning. --Cefdinir 300 mg capsule, take 1 capsule twice daily for 7 doses. Your next dose is due tonight. 2. Continue your other home medications as previously prescribed. 3. Seek medical attention if you have fever greater than 101, severe shortness of breath or severe chest pain. - Discharge Plan *PRESCRIPTION DRUG MONITORING PROGRAM REVIEWED*: Not Applicable *COPY OF PRESCRIPTION DRUG MONITORING REPORT IN PATIENT SERGEY: Not Applicable Prescriptions/Med Rec: Azithromycin 500 mg PO DAILY #3 tablet Cefdinir [Omnicef] 300 mg PO BID #7 cap Home Medications: Home Meds Acetaminophen [Tylenol] 650 mg PO ASDIRECTED PRN 04/20/16 [History] Acyclovir [Zovirax] 2 tab PO ASDIRECTED PRN 08/19/18 [History] Loratadine 10 mg PO DAILY PRN 08/19/18 [History] Meclizine [Antivert] 25 mg PO TID PRN 08/19/18 [History] Norgestrel-Ethinyl Estradiol [Cryselle-28 Tablet] 1 each PO DAILY 08/19/18 [ History] Ondansetron HCl [Zofran] 4 mg PO ASDIRECTED PRN 08/19/18 [History] SUMAtriptan [Imitrex] 50 mg PO ASDIRECTED PRN 08/19/18 [History] Levofloxacin [Levaquin] 750 mg PO DAILY 08/22/18 [History] Azithromycin 500 mg PO DAILY #3 tablet 08/24/18 [Rx] Cefdinir [Omnicef] 300 mg PO BID #7 cap 08/24/18 [Rx] Oxygen Therapy Mode: Room Air Patient Handouts: Community-Acquired Pneumonia, Adult, [id number] Referrals: Sylvie Crowell CNM [Primary Care Provider] - (f/u as scheduled next week ) - Discharge Summary/Plan Comment DC Time >30 min.: No - Patient Data Vitals - Most Recent: Last Vital Signs Temp 35.7 C 08/24/18 07:00 Pulse 71 08/24/18 07:00 Resp 18 08/24/18 07:00 BP 105/65 08/24/18 07:00 Pulse Ox 98 08/24/18 07:00 Weight - Most Recent: 79.56 kg I&O - Last 24 hours: Intake & Output 08/23/18 08/24/18 08/24/18 22:59 06:59 14:59 Intake Total 500 240 Balance 500 240 Lab Results - Last 24 hrs: Laboratory Results - last 24 hr 08/24/18 08/24/18 Range/Units 05:32 05:32 WBC 7.2 (4.5-11.0) K/uL RBC 3.98 (3.30-5.50) M/uL Hgb 11.5 L (12.0-15.0) g/dL Hct 35.6 L (36.0-48.0) % MCV 89 (80-98) fL MCH 29 (27-31) pg MCHC 32 (32-36) % Plt Count 334 (150-400) K/uL Sodium 140 (140-148) mmol/L Potassium 4.5 (3.6-5.2) mmol/L Chloride 108 (100-108) mmol/L Carbon Dioxide 27 (21-32) mmol/L Anion Gap 4.9 L (5.0-14.0) mmol/L BUN 11 (7-18) mg/dL Creatinine 0.9 (0.6-1.0) mg/dL Est Cr Clr Drug Dosing 86.34 mL/min Estimated GFR (MDRD) > 60 (>60) Glucose 96 (74-106) mg/dL Calcium 8.1 L (8.5-10.1) mg/dL SOL Results - Last 24 hrs: Microbiology 08/23/18 01:20 Urine Culture - Preliminary Urine, Bladder NO GROWTH AFTER 1 DAY Med Orders - Current: Current Medications Acetaminophen (Tylenol) 650 mg PO Q4H PRN PRN Reason: Pain (Mild 1-3)/fever Azithromycin (Zithromax) 500 mg PO DAILY [facility] Last Admin: 08/24/18 08:11 Dose: 500 mg Cefdinir (Omnicef) 300 mg PO BID [facility] Last Admin: 08/24/18 08:11 Dose: 300 mg Sodium Chloride (Normal Saline) 1,000 mls @ 125 mls/hr IV ASDIRECTED [facility] Last Admin: 08/24/18 02:38 Dose: 125 mls/hr Norgestrel-Ethinyl Estradiol [Cryselle- 28 Tab) (Ptom) 1 each PO DAILY VIGNEHS Last Admin: 08/24/18 08:09 Dose: Not Given Ondansetron HCl (Zofran) 4 mg IV Q4H PRN PRN Reason: Nausea/Vomiting Last Admin: 08/23/18 07:48 Dose: 4 mg Sumatriptan Succinate (Imitrex) 50 mg PO ASDIRECTED PRN PRN Reason: Headache Last Admin: 08/24/18 08:08 Dose: 50 mg Discontinued Medications Sodium Chloride (Normal Saline) 1,000 mls @ 999 mls/hr IV ASDIRECTED VIGNESH Last Admin: 08/22/18 23:50 Dose: 999 mls/hr Sodium Chloride (Normal Saline) 75 mls @ 3 mls/sec IV ASDIRECTED STA Stop: 08/23/18 00:04 Last Admin: 08/23/18 00:12 Dose: 3 mls/sec Ceftriaxone Sodium 1 gm/ (Sodium Chloride) 50 mls @ 100 mls/hr IV ONETIME ONE Stop: 08/23/18 01:14 Last Admin: 08/23/18 00:55 Dose: 100 mls/hr Sodium Chloride (Normal Saline) 1,000 mls @ 999 mls/hr IV ASDIRECTED [facility] Last Admin: 08/23/18 01:51 Dose: 999 mls/hr Iopamidol (Isovue-300 (61%)) 100 ml IV . DIRECTED STA Stop: 08/23/18 00:04 Last Admin: 08/23/18 00:12 Dose: 100 ml Lorazepam (Ativan) 0.5 mg IVPUSH ONETIME ONE Stop: 08/23/18 01:32 Last Admin: 08/23/18 02:39 Dose: Not Given Ondansetron HCl (Zofran) 4 mg IVPUSH ONETIME ONE Stop: 08/22/18 23:37 Last Admin: 08/22/18 23:49 Dose: 4 mg Ondansetron HCl (Zofran) 4 mg IVPUSH ONETIME ONE Stop: 08/23/18 00:32 Last Admin: 08/23/18 00:54 Dose: 4 mg - Exam Quality Assessment: Denies: Supplemental Oxygen General: Reports: Alert, Oriented, Cooperative, No Acute Distress Lungs: Reports: Normal Respiratory Effort GI/Abdominal Exam: Soft, No Distention Extremities: No Pedal Edema Psy/Mental Status: Reports: Alert, Normal Affect
== END 2018-08-24 09:44 | disposition home or self-care (01) ==
LOC: JP.ED 22:57 → JP.MS 08-23 02:13
PROVIDERS: ADMIT Family Medicine; ATTEND Internal Medicine
DX: J18.1 Lobar pneumonia, unspecified organism (principal); R11.0 Nausea; Z88.1 Allergy status to other antibiotic agents; Z79.899 Other long term (current) drug therapy
CPT/HCPCS: 36415; 71260; 80048; 80053; 81001; 85025; 85027; 86140; 87086; 96361; 96365; 96375; 96376; 99285; A9270; G0378; J0696; J2405; J7030; J7050; Q9967